=== PATIENT | female | born 1960 | race Caucasian/White ===

== ENCOUNTER → 2020-04-28 12:05 | Outpatient (CLI) | payer OTHER, SELFPAY ==
--- NOTE | ~2020-04-28 | MM_ITS ---
EXAMINATION: MM screening bere BI w fabrizio HISTORY: Screening mammogram TECHNIQUE: Craniocaudal and mediolateral oblique 3-D tomosynthesis images were obtained and synthetic 2-D images were generated. CAD analysis was submitted and interpreted. COMPARISON: No prior mammogram is available for comparison at this institution. BREAST PARENCHYMAL COMPOSITION: There are scattered areas of fibroglandular density. FINDINGS: Scattered benign-appearing calcifications are present. There is asymmetric increased density in the upper left breast compared to the right. Approximately 3.5 mm circumscribed mass is noted at mid depth in the lower outer left breast, likely benign. Diagnostic left mammogram and targeted left breast ultrasound examination are recommended. No evidence of suspicious mass, calcification, or architectural distortion to suggest malignancy in e ither breast. There has been no suspicious interval change. IMPRESSION: 1. 3 mm circumscribed mass of the lateral left breast; asymmetric increased density in the upper left breast compared to the right 2. Diagnostic left mammogram and targeted left breast ultrasound examination are recommended. BI-RADS Category 0: Incomplete: Needs additional imaging evaluation. Reviewed, dictated and finalized at location A. 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 3 mm circumscribed mass of the lateral left breast; asymmetric increased den sity in the upper left breast compared to the right 2. Diagnostic left mammogram and targeted left breast ultrasound examination ar e recommended. BI-RADS Category 0: Incomplete: Needs additional imaging evaluation.
== END ==
PROVIDERS: Visit Provider Obstetrics & Gynecology
DX: Z12.31 Encounter for screening mammogram for malignant neoplasm of breast (principal); R92.8 Other abnormal and inconclusive findings on diagnostic imaging of breast
CPT/HCPCS: 77063; 77067

== ENCOUNTER → 2020-05-20 08:31 | Outpatient (CLI) | payer OTHER, SELFPAY ==
--- NOTE | ~2020-05-20 | MMUS_ITS ---
EXAMINATION: MM diagnostic mammo unilat LT, US breast LT complete HISTORY: Possible small mass in the lower outer quadrant of left breast and possible spiculated area in upper left breast on 04/28/2020 screening mammogram TECHNIQUE: Additional 3-D tomosynthesis images of the left breast were performed and synthetic 2-D im ages were generated. CAD analysis was submitted and interpreted. High resolution complete left breast ultrasound was performed. COMPARISON: 04/28/2020 bilateral digital screening mammogram FINDINGS: MAMMOGRAPHIC FINDINGS: No reproducible suspicious mass or architectural distortion is evident. ULTRASOUND: 12:00 3 cm from nipple: Parallel circumscribed hypoechoic 3.9 x 7.2 x 6.6 mm lesion without internal vascularity or suspicious shadowing. 4:00 2.5 cm from nipple: Parallel circumscribed hypoechoic 3.9 x 2.4 x 4.8 mm solid lesion without in ternal vascularity or suspicious shadowing. No suspicious mass or shadowing is noted otherwise. IMPRESSION: 1. Probably benign findings 2. Recommend 6 month follow-up targeted left breast ultrasound examination to document stability of 1 2:00 and 4:00 lesions. BI-RADS category 3, probably benign findings. Reviewed, dictated and finalized at location A. [employer] BONDER IMPRESSION: 1. Probably benign findings 2. Recommend 6 month follow-up targeted left breast ultrasound examination to d ocument stability of 12:00 and 4:00 lesions. BI-RADS category 3, probably benign findings.
== END ==
PROVIDERS: PCP Family Medicine; Visit Provider Obstetrics & Gynecology
DX: R92.8 Other abnormal and inconclusive findings on diagnostic imaging of breast (principal)
CPT/HCPCS: 76641; 77065